=== PATIENT | male | born 1995 | race Caucasian/White ===

== ENCOUNTER 2019-05-19 13:02 | Emergency (ER) | payer OTHER ==
[~2019-05-19] VITALS: Ht 165.1 cm; Wt 54.4 kg
--- NOTE | 2019-05-19 13:25 | NUR ---
Patient camein due to sorethroat and fever. On room air, breathing evenly and unlabored. Kept comfortable, will continue to monitor accordingly.
[2019-05-19] MEDS ORDERED: ACETAMINOPHEN ES 500 MG TABLET ONE (13:28)
[2019-05-19] MEDS ORDERED: IBUPROFEN 600 MG TABLET PO ONE ×2 (13:28→13:30)
[2019-05-19] MEDS ORDERED: ACETAMINOPHEN ES 500 MG TABLET PO ONE (13:30)
[2019-05-19 13:34] VITALS: BP 133/80
--- NOTE | 2019-05-19 13:35 | NUR ---
Patient discharged to home in stable condition. Written and verbal after care instructions given. Patient verbalizes understanding of instruction.
== END 2019-05-19 13:34 | disposition home or self-care (01) ==
LOC: ER 13:03
DX: J02.0 Streptococcal pharyngitis (principal); F17.200 Nicotine dependence, unspecified, uncomplicated; Z60.2 Problems related to living alone